=== PATIENT | male | born 1950 | race Hispanic/Latino ===

== ENCOUNTER 2019-10-02 15:56 | Outpatient (CLI) | payer OTHER | END 2019-10-02 21:50 | disposition home or self-care (01) | LOC: RAD 15:56 | DX: R06.02 Shortness of breath (principal) ==

== ENCOUNTER 2020-04-07 11:31 | Outpatient (CLI) | payer OTHER | END 2020-04-07 22:11 | disposition home or self-care (01) | LOC: CT 11:31 | PROVIDERS: ATTEND Internal Medicine Sleep Medicine | DX: R91.8 Other nonspecific abnormal finding of lung field (principal) ==